=== PATIENT | male | born 1995 | race Caucasian/White ===

== ENCOUNTER 2019-04-18 09:09 | Day surgery (SDC) | payer OTHER ==
[~2019-04-18] VITALS: Ht 176.5 cm; Wt 96.1 kg
[2019-04-18 10:15] VITALS: Ht 176.5 cm; Wt 96.1 kg
[2019-04-18 11:20] VITALS: BP 141/76; PULSE 78; RESP 24
[2019-04-18 11:46] VITALS: BP 99/52
[2019-04-18] MEDS ORDERED: PROPOFOL 60 ML ONE (11:47)
[2019-04-18 11:56] VITALS: BP 103/46; PULSE 48; RESP 24
[2019-04-18 12:01] VITALS: BP 99/57; PULSE 44; RESP 23
[2019-04-18 12:06] VITALS: BP 112/61; PULSE 48; RESP 26
[2019-04-18 12:11] VITALS: BP 116/51; PULSE 48; RESP 17
== END 2019-04-18 12:35 | disposition home or self-care (01) ==
LOC: GIL 09:09
PROVIDERS: ATTEND Internal Medicine Gastroenterology
DX: K29.30 Chronic superficial gastritis without bleeding (principal)
CPT/HCPCS: 43239; 88305; 88312; Z7610